=== PATIENT | male | born 1935 | race Caucasian/White ===

== ENCOUNTER 2021-03-03 10:16 | Day surgery (SDC) | payer OTHER | END 2021-03-03 15:00 | disposition home or self-care (01) | LOC: AMB-ENDOS 10:16 | PROVIDERS: ATTEND Colon & Rectal Surgery | DX: D12.3 Benign neoplasm of transverse colon (principal); K29.60 Other gastritis without bleeding; Z20.822 Contact with and (suspected) exposure to COVID-19; K44.9 Diaphragmatic hernia without obstruction or gangrene ==

== ENCOUNTER 2021-08-09 08:00 | Outpatient (CLI) | payer OTHER | END 2021-08-09 08:30 | disposition home or self-care (01) | LOC: PPH VACUNA 08:00 | PROVIDERS: ATTEND Emergency Medicine Pediatric Emergency Medicine | DX: Z23 Encounter for immunization (principal) ==

== ENCOUNTER 2021-09-19 13:47 | Emergency (ER) | payer OTHER ==
[~2021-09-19] VITALS: Ht 165.1 cm; Wt 88.5 kg
[2021-09-19] MEDS ORDERED: PRILOSEC OTC20 MG PO (14:27)
[2021-09-19] MEDS ORDERED: ADULT LOW DOSE81 M1 PO (14:27)
[2021-09-19] MEDS ORDERED: COZAAR100 MG PO (14:27)
[2021-09-20] MEDS ORDERED: DOLOGESIC 500-1 EACH PO (00:24)
== END 2021-09-20 00:34 | disposition home or self-care (01) ==
LOC: ER 13:47
DX: G44.89 Other headache syndrome (principal); R42 Dizziness and giddiness

== ENCOUNTER 2022-11-02 12:14 | Outpatient (CLI) | payer OTHER ==
[~2022-11-02 12:14] MED LIST: ADULT LOW DOSE81 M1 PO; COZAAR100 MG PO; DOLOGESIC 500-1 EACH PO; PRILOSEC OTC20 MG PO
== END 2022-11-02 12:21 | disposition home or self-care (01) ==
LOC: RAD 12:14
PROVIDERS: ATTEND Orthopaedic Surgery
DX: M65.311 Trigger thumb, right thumb (principal); M79.641 Pain in right hand

== ENCOUNTER 2023-03-08 11:08 | Outpatient (CLI) | payer OTHER | END 2023-03-08 11:10 | disposition home or self-care (01) | LOC: NUCLEAR 11:08 | PROVIDERS: ATTEND Internal Medicine | DX: I87.2 Venous insufficiency (chronic) (peripheral) (principal) ==